=== PATIENT | male | born 1980 | race African-American/Black ===

== ENCOUNTER 2019-03-31 11:45 | Emergency (ER) | payer OTHER ==
[~2019-03-31] VITALS: Ht 190.5 cm; Wt 127.0 kg
[2019-03-31 11:58] VITALS: BP 143/81
[2019-03-31] MEDS ORDERED: NKM (11:59)
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
[2019-03-31] MEDS ORDERED: Acetaminophen 500mg (ES) tab ORAL ONE (12:30)
--- NOTE | 2019-03-31 12:33 | NUR ---
ED Nurse Note: pt medicated as ordered, pt able to tolerate po meds.
[2019-03-31] MEDS ORDERED: NAPROXEN250 MG ORAL (13:02)
[2019-03-31] MEDS ORDERED: ROBAXIN-750750 MG PO (13:02)
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
[2019-03-31 13:15] VITALS: BP 143/81
--- NOTE | 2019-03-31 13:15 | NUR ---
ER DISCHARGE NOTE: Patient is cleared to be discharged per ERMD, pt is aox4, on room air, with stable vital signs. pt was given dc and prescription instructions, pt was able to verbalize understanding, pt id band removed without complications. pt is able to ambulate with steady gait. pt took all belongings.
== END 2019-03-31 13:24 | disposition home or self-care (01) ==
LOC: EMR 12:50
DX: M54.5 Low back pain (principal); T14.8XXA Other injury of unspecified body region, initial encounter; W22.8XXA Striking against or struck by other objects, initial encounter; Y92.59 Other trade areas as the place of occurrence of the external cause
CPT/HCPCS: 99282